=== PATIENT | male | born 1945 | race Caucasian/White ===

== ENCOUNTER 2017-09-25 18:56 | Emergency (ER) | payer MEDICARE, BC ==
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
== END 2017-09-25 21:12 | disposition home or self-care (01) ==
LOC: JP.ED 18:56
DX: R23.3 Spontaneous ecchymoses (principal); R11.2 Nausea with vomiting, unspecified; I10 Essential (primary) hypertension; Z79.82 Long term (current) use of aspirin; Z79.899 Other long term (current) drug therapy
CPT/HCPCS: 99283; 99284